=== PATIENT | male | born 1955 | race Caucasian/White ===

== ENCOUNTER 2022-04-18 10:08 | Observation (INO) ==
[~2022-04-18 10:08] MED LIST: Buffered Lidocaine 1% SYRIN 1 ml INTRADERM ONE; HYDROmorphone 1 MG/1 ML SYRINGE IV PRN; Lactated Ringers 1000 ml BAG 1,000 ML IV SCH; Naloxone 0.4 mg VIAL 0.4 mg/ml 1 ml VIAL IV PRN; Prochlorperazine 5 mg/ml 2 ml VIAL (10 mg) IV PRN
[2022-04-18] MEDS ORDERED: Propofol 10 MG/ML 20 ML BTL ONE ×2 (10:35→15:26)
[2022-04-18] MEDS ORDERED: Lidocaine 2% PF 5 ML VIAL ONE (10:35)
[2022-04-18] MEDS ORDERED: Clindamycin 900 MG/D5W BAG 900 MG/50 ML BAG IVPB ONE (10:35)
[2022-04-18] MEDS ORDERED: Ketamine HCL 50 mg/ml 10 ml VIAL (500 MG) ONE (10:36)
[2022-04-18] MEDS ORDERED: Midazolam 2 mg/2 ml VIAL 1 mg/ml 2 ml VIAL (2 mg) ONE ×2 (13:25→13:47)
[2022-04-18] MEDS ORDERED: Glycopyrrolate IV 0.2 MG/ML 1 ML VIAL ONE (13:59)
[2022-04-18] MEDS ORDERED: Sterile Water for Inj 10 ML ONE (13:59)
[2022-04-18] MEDS ORDERED: Bupivacaine 0.5% PF 10 ML SDV VIAL INJ ONE (14:09)
[2022-04-18] MEDS ORDERED: Phenylephrine 40 mcg/mL 10mL (400mcg) SYRINGE ONE ×2 (14:09→14:32)
[2022-04-18] MEDS ORDERED: Ondansetron 4 mg VIAL 2 MG/ML 2 ml VIAL ONE (14:20)
[2022-04-18] MEDS ORDERED: Phenylephrine IV 10 MG/ML 1 ml VIAL ONE (14:22)
[2022-04-18] MEDS ORDERED: Magnesium Hydroxide LIQ 30 ML UDC PO PRN (14:51)
[2022-04-18] MEDS ORDERED: Morphine 2 MG/ML SYRINGE IV PRN (14:51)
[2022-04-18] MEDS ORDERED: Lactulose 30 ml UDC PO PRN (14:51)
[2022-04-18] MEDS ORDERED: Ropivacaine 5 MG/ML 20 ML VIAL 0.5% (100 MG) ONE (15:19)
[2022-04-18] MEDS: Lactated Ringers 1000 ml BAG 1,000 ML IV SCH (18:22)
[2022-04-18] MEDS: Magnesium Hydroxide LIQ 30 ML UDC PO SCH (19:59)
[2022-04-18] MEDS: Clindamycin 600 MG/D5W BAG 600 MG/50 ML BAG IV SCH (22:50)
[2022-04-19] MEDS: Lactated Ringers 1000 ml BAG 1,000 ML IV SCH (04:50)
[2022-04-19] MEDS: Clindamycin 600 MG/D5W BAG 600 MG/50 ML BAG IV SCH ×2 (05:23→13:48)
[2022-04-19 06:12] LABS: Hematocrit 34 % (42-52); Hemoglobin 11.3 g/dL (14.0-18.0); Platelet Count 148 10^3/uL (150-450)
[2022-04-19 06:49] LABS: Calcium 8.6 mg/dL (8.6-10.3); Potassium 4.2 mmol/L (3.5-5.0); eGFR CKD-EPI 57.8 (>60)
[2022-04-19] MEDS: Magnesium Hydroxide LIQ 30 ML UDC PO SCH (08:34)
[2022-04-19] MEDS ORDERED: Vitamin THERAPEUTIC TAB PO SCH (09:00)
== END 2022-04-19 15:35 | disposition home or self-care (01) ==
LOC: SSU 10:08 → OR 10:08
PROVIDERS: ADMIT Orthopaedic Surgery Adult Reconstructive Orthopaedic Surgery; ATTEND Orthopaedic Surgery Adult Reconstructive Orthopaedic Surgery